=== PATIENT | male | born 1945 | race Hispanic/Latino ===

== ENCOUNTER 2018-05-12 03:19 | Inpatient (IN) | payer MEDICARE ==
[2018-05-12 03:38] VITALS: O2SAT 97
--- NOTE | 2018-05-12 03:46 | ED PDOC ---
Psych Transfer Clearance - Clearance Statement Clearance Statement: Reviewed vital signs, lab results and transfer papers. Patient clinically stable for psychiatric admission.
[2018-05-12] MEDS ORDERED: Magnesium Hydroxide Susp 30 ml UD PO PRN (04:06)
[2018-05-12] MEDS ORDERED: Bismuth Subsalicylate 262 mg/15 ml Sus (240 ml) PO PRN (04:06)
[2018-05-12] MEDS ORDERED: Alum-Mag Hydrox-Simethicone Susp (30 mL) PO PRN (04:06)
--- NOTE | 2018-05-12 04:58 | PCM.BM ---
<Ezequiel Cyr - Last Filed: 05/12/18 04:55> Treatment Plan Problems - Problems identified on initial assessmt Ineffective Impulse Control Date Initiated: 05/12/18 Time Initiated: 04:58 Assessment reference: HP NA Status: Active Treatment assets and liabiliti Patient Assests: cooperative, negotiates basic needs Patient Liabilities: relationship conflicts (conflict with ), medical problems (hard of hearing) - Milieu Protocol Maintain good personal hygiene: daily Encourage regular showers, daily Remind patient to perform daily oral care, daily Assist patient to perform ADL's Maintain personal safety: every shift Educate patient to report safety concerns to staff, every shift Monitor environment for contraband/sharps Medication safety: Monitor for expected outcome, potential side effects: every shift, Assess barriers to learning: every shift, Assess readiness for medication education: every shift <Clementine Jones - Last Filed: 05/12/18 11:40> - Diagnosis (1) PTSD (post-traumatic stress disorder) Status: Acute Interventions: Medication management, Individual and group therapy, Psychoeducation 05/12/18 11:40 <Wen Aguilera - Last Filed: 05/13/18 12:45> Family Contact Family contact: Patient agrees to contact, Family has been contacted by patient , Telephone contact initiated by staff Family contact name: Julia - spouse Family contacted how many times per week?: 2 Family contact comment: [phone] - Outside Agency [facility] involvment: Information-sharing Agency contact name: Dr. Mundo Woods MD Agency contact number: [phone] - Goals for Treatment Patient goals for treatment: Pt to be encouraged to attend activity and clinical groups 3-5x per week to identify at least 2 contributing factors to depression and suicide attempt. Psycho-education to be provided to patient/ family regarding benefits of medications and treatment adherence. Pt to be encouraged to participate in group milieu to develop effective coping skills to reduce depression and free of suicide ideation. Coordinate discharge resource needs by providing referral for psychiatric treatment follow up in the community. Discharge/Continuing Care - Education Needs Education Needs: Patient Medication, Patient Diagnosis/Disease Process, Patient Coping Skills, Patient Community resources, Patient Activities of Daily Living, Patient Uses of Medical Equipment, Patient Health Practices/Safety, Patient Personal Hygiene/Grooming - Discharge Discharge Criteria: Tolerates medication w/o severe side effects, Free of Suicidal thoughts, Free of agitation, Normal sleep pattern, Ability to care for self, Reduction of target symptoms Discharge to:: Home, With Family - Additional Comments 05/13/18 12:27 Pt seen and discussed in team meeting. Pt apologized for bx earlier. Pt presented with mood swings and labile. Pt was tearful when talking about his recent sister and the [facility]. Pt requesting to be discharged. Discharge process explained to pt. Pt informed that [facility] was contacted and pending evaluation. Pt verbalized understanding and was able to calm down. Pt reported medication compliance. Pt talked about his marital issues and conflictual relationship with his spouse. Pt denied active SI and HI. Pt denied active AVH. Pt denied any paranoia. Pt informed that he will be discharged once [facility] evaluates him and if he does not meet criteria for involuntary hospitalization. Pt also informed of process if he does meet criteria for involuntary hospitalizations. SW to continue to follow case. - Treatment Team Participation Discussed with Family/SO: No Was Patient/Family/SO present at Treatment Team Meeting: Yes
[2018-05-12] MEDS ORDERED: Albuterol-Ipratrop 3 mg / 0.5 (3 ml) UD INH PRN (05:27)
[2018-05-12 06:33] LABS: MEAN CELL VOLUME 84.4 fl (80.0-94.0); MEAN CORPUSCULAR HEMOGLOBIN 28.8 pg (27.0-31.0); MEAN CORPUSCULAR HGB CONC 34.2 g/dL (33.0-37.0); RBC 4.84 Mil/uL (4.40-5.90); RED CELL DISTRIBUTION WIDTH 13.8 % (11.5-14.5)
[2018-05-12 06:46] LABS: IRON 36 ug/dL (49-181)
[2018-05-12 06:49] LABS: ALB/GLOB RATIO 1.7 (1.0-2.1); ALBUMIN 3.6 g/dL (3.5-5.0); ALT/SGPT 23 U/L (21-72); AST/SGOT 17 U/L (17-59); BLOOD UREA NITROGEN 10 mg/dl (9-20); CALCIUM 8.5 mg/dL (8.4-10.2); GFR AFRICAN-AMERICAN > 60; GFR NON-AFRICAN AMERICAN > 60; HDL CHOLESTEROL 32 MG/DL (30-70)
[2018-05-12 06:57] LABS: % IRON SATURATION 12 % (20-55); TOTAL IRON BINDING CAPACITY 309 ug/dL (250-450)
[2018-05-12 07:00] LABS: LDL CHOLESTEROL 78 mg/dL (0-129)
[2018-05-12 07:04] LABS: T4 8.42 ug/dl (5.5-11.0)
[2018-05-12 07:21] LABS: FERRITIN 73.4 ng/Ml (17.9-464)
[2018-05-12] MEDS: Fluticasone-Salmeterol 250-50mcg Diskus IH SCH ×2 (08:47→22:01)
[2018-05-12] MEDS ORDERED: Patient's Own Med (Budesonide/Formoterol Fumarate [Symbicort 160-4.5 Mcg Inhaler] 1 AER) IH SCH (09:00)
--- NOTE | 2018-05-12 10:22 | PCM.PSYCH ---
Initial Psychiatric Evaluation - Initial Psychiatric Evaluation Type of Admission: Voluntary Legal Status: Capacity Chief Complaint (in patient's own words): "I threatened to kill myself." Patient's Reaction to Hospitalization: HPI: 73 yo male w/ h/o PTSD, was transferred after her made a threat to kill himself in an ER, in the context of being in the hospital with his ill mother. Patient now states that he made that threat due to anger and did not have any intention to harm himself. He reports that he feels intermittently depressed and hopeless, but denies acute ideation to harm himself. He denies AH/VH/ paranoia/delusions/SI/HI. Although patient minimizes psychiatric symptoms, he is intrusive, pressured, labile and irritable w/ automobile and property underwriter and staff. Patient submitted a 48 hr letter requesting to be discharged. Collateral history obtained from his , who states that the patient is emotionally unstable, labile and she does not feel he is psychiatrically stable or safe to be discharged to home. PPHx: H/o 4 previous psychiatric admissions. Denies h/o suicide attempts. 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 Current Medications: Active Medications Generic Name Dose Route Start Last Admin Trade Name Freq PRN Reason Stop Dose Admin Acetaminophen 650 mg 05/12/18 04:06 Tylenol 325mg Tab PO Q4 PRN Pain, moderate (4-7) Al Hydrox/Mg Hydrox/Simethicone 30 ml 05/12/18 04:06 Maalox Plus 30 Ml PO Q4 PRN Dyspepsia Albuterol/Ipratropium 3 ml 05/12/18 05:27 Duoneb 3 Mg/0.5 Mg (3 Ml) Ud INH RQ6 PRN Shortness of Breath Aspirin 81 mg 05/12/18 09:00 05/12/18 08:45 Ecotrin PO 81 mg DAILY MARK Administration Bismuth Subsalicylate 524 mg 05/12/18 04:06 Pepto-Bismol PO Q4 PRN Diarrhea Diltiazem HCl 60 mg 05/12/18 09:00 05/12/18 08:46 Cardizem PO 60 mg BID MARK Administration Docusate Sodium 100 mg 05/12/18 09:00 05/12/18 08:45 Colace PO 100 mg BID MARK Administration Hydroxyzine HCl 25 mg 05/12/18 09:00 05/12/18 08:46 Atarax PO 25 mg BID MARK Administration Lorazepam 0.5 mg 05/12/18 04:06 Ativan PO 05/26/18 04:07 HS PRN Insomnia Lorazepam 0.5 mg 05/12/18 04:06 Ativan PO 05/26/18 04:07 Q6 PRN Anixety/Agitation Magnesium Hydroxide 30 ml 05/12/18 04:06 Milk Of Magnesia PO HS PRN Constipation Fluticasone/Salmeterol 1 puff 05/12/18 09:00 05/12/18 08:47 Advair Diskus 250/50 IH 1 puff Q12 MARK Administration Sennosides 8.6 mg 05/12/18 09:00 05/12/18 08:46 Senokot Tab PO 8.6 mg BID MARK Administration Past Psychiatric History - Past Psychiatric History Previous Treatment History: Inpatient Pertinent Medical Hx (Current Medical&Sleep Prob, Allergies): Allergies Allergy/AdvReac Type Severity Reaction Status Date / Time shellfish derived AdvReac SWELLING Verified 05/12/18 03:32 Albuterol Sulfate [Proventil Hfa] 05/12/18 Aspirin [Adult Low Dose Aspirin EC] 81 mg PO DAILY 05/12/18 Budesonide/Formoterol Fumarate [Symbicort] 1 aer IH 05/12/18 Cetirizine HCl [Children's Wal-Zyr] 10 mg PO DAILY 05/12/18 Cholecalciferol (Vitamin D3) [Vitamin D3] 2,000 unit PO DAILY 05/12/18 Diltiazem HCl [Cardizem] 60 mg PO BID 05/12/18 Docusate Sodium [Bustillo' Stool Softener Laxative] 100 mg PO BID 05/12/18 Hydroxyzine HCl 25 mg PO BID 05/12/18 Ipratropium Satin [Ipratropium Satin 30 ml] 30 ml NS 05/12/18 Sennosides [Senna Laxative] 8.6 mg PO BID 05/12/18 clonazePAM [clonAZEPAM] 1 mg PO BID 05/12/18 Review of Systems - Psychiatric Psychiatric: Abnormal Sleep Pattern, Depression, Difficulty Concentrating, Irritability, Mood Swings, Suicidal Ideation Mental Status Examination - Personal Presentation Personal Presentation: Looks older than stated age - Affect Affect: Other (Labile) - Motor Activity Motor Activity: Psychomotor Agitation - Reliability in Providing Information Reliability in Providing Information: Poor, due to alteration in thoughts - Speech Speech: Coherent - Mood Mood: Depressed - Formal Thought Process Formal Thought Process: No Impairment - Hallucinations/Delusions Additional comments: No AH/VH/paranoia/delusions - Obsessions/Compulsions Obsessions: No Compulsions: No - Cognitive Functions Orientation: Person, Place, Situation, Time Sensorium: Alert Judgement: Imparied, as evidence by: Lack of insight into illness Memory: Recent intact, as evidence by: Ability to recall events of the day - Risk Risk: Diminished functioning - Strength & Assets Inventory Strength & Assets Inventory: Family support - Limitations Limitations: Decreased memory, recent DSM 5 DX - DSM 5 DSM 5 Diagnosis: PTSD, Mood Disorder NOS - Recommended/Plan of Treatment Treatment Recommendations and Plan of Treatment: PTSD, Mood Disorder NOS -Admit to psychiatry unit -Continue Klonopin; patient does not want to change his psychiatric medications at this time -Medicine consult -Pt submitted a 48 hr letter requesting to be discharged; will screen for involuntary psychiatric commitment -Disposition planning Discharge Plan and Discharge Criteria: Discharge when patient is psychiatrically stable - Smoking Cessation Smoking Cessation Initiated: No Reason for not providing: Not indicated
[2018-05-12 16:50] LABS: FOLATE 5.5 ng/mL
[2018-05-12 17:50] VITALS: TEMP 97
--- NOTE | 2018-05-12 18:26 | CP.PCM.CON ---
History of Present Illness - History of Present Illness History of Present Illness: 73 yo male with history of COPD, CAD, HTN, Prostate Cancer complicated with Lymphedema and PTSD admitted to [facility] because of suicidal ideation Review of Systems - Review of Systems All systems: reviewed and no additional remarkable complaints except (aside from those mentioned above, 12 point system review were negative by me) Past Patient History - Tetanus Immunizations Tetanus Immunization: Unknown - Past Social History Smoking Status: Never Smoked Chewing Tobacco Use: No Cigar Use: No Alcohol: None Drugs: Denies - CARDIAC Hx Atrial Fibrillation: Yes Hx Heart Attack: Yes Hx Hypertension: Yes Hx Peripheral Vascular Disease: Yes - PULMONARY Hx Chronic Obstructive Pulmonary Disease (COPD): Yes Hx Sleep Apnea: Yes - HEENT 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) - MUSCULOSKELETAL/RHEUMATOLOGICAL Hx Falls: Yes - GASTROINTESTINAL Hx Constipation: Yes - GENITOURINARY/GYNECOLOGICAL Hx Prostate Cancer: Yes - SURGICAL HISTORY Other/Comment: cardiac stents x3 - ANESTHESIA Hx Anesthesia: Yes Hx Anesthesia Reactions: No Hx Malignant Hyperthermia: No Has any member of the family had a problem w/ anesthesia?: No Meds Allergies/Adverse Reactions: Allergies Allergy/AdvReac Type Severity Reaction Status Date / Time shellfish derived AdvReac SWELLING Verified 05/12/18 03:32 - Medications Medications: Current Medications Acetaminophen (Tylenol 325mg Tab) 650 mg PO Q4 PRN PRN Reason: Pain, moderate (4-7) Last Admin: 05/12/18 16:33 Dose: 650 mg Al Hydrox/Mg Hydrox/Simethicone (Maalox Plus 30 Ml) 30 ml PO Q4 PRN PRN Reason: Dyspepsia Albuterol/Ipratropium (Duoneb 3 Mg/0.5 Mg (3 Ml) Ud) 3 ml INH RQ6 PRN PRN Reason: Shortness of Breath Aspirin (Ecotrin) 81 mg PO DAILY [facility] Last Admin: 05/12/18 08:45 Dose: 81 mg Bismuth Subsalicylate (Pepto-Bismol) 524 mg PO Q4 PRN PRN Reason: Diarrhea Clonazepam (Klonopin) 1 mg PO BID [facility] Last Admin: 05/12/18 16:27 Dose: 1 mg Diltiazem HCl (Cardizem) 60 mg PO BID [facility] Last Admin: 05/12/18 17:53 Dose: Not Given Docusate Sodium (Colace) 100 mg PO BID [facility] Last Admin: 05/12/18 16:27 Dose: 100 mg Hydroxyzine HCl (Atarax) 25 mg PO BID [facility] Last Admin: 05/12/18 16:27 Dose: 25 mg Lorazepam (Ativan) 0.5 mg PO HS PRN PRN Reason: Insomnia Stop: 05/26/18 04:07 Lorazepam (Ativan) 0.5 mg PO Q6 PRN PRN Reason: Anixety/Agitation Stop: 05/26/18 04:07 Magnesium Hydroxide (Milk Of Magnesia) 30 ml PO HS PRN PRN Reason: Constipation Fluticasone/Salmeterol (Advair Diskus 250/50) 1 puff IH Q12 [facility] Last Admin: 05/12/18 08:47 Dose: 1 puff Sennosides (Senokot Tab) 8.6 mg PO BID [facility] Last Admin: 05/12/18 16:27 Dose: 8.6 mg Physical Exam - Constitutional Appears: No Acute Distress - Head Exam Head Exam: ATRAUMATIC - Eye Exam Eye Exam: absent: Scleral icterus - ENT Exam ENT Exam: Mucous Membranes Moist - Neck Exam Neck exam: Negative for: Meningismus - Respiratory Exam Respiratory Exam: absent: Rales, Rhonchi, Wheezes, Respiratory Distress - Cardiovascular Exam Cardiovascular Exam: REGULAR RHYTHM, +S1, +S2 - GI/Abdominal Exam GI & Abdominal Exam: Soft. absent: Tenderness - Rectal Exam Rectal Exam: Deferred - Back Exam Back exam: NORMAL INSPECTION - Neurological Exam Neurological exam: Alert, Oriented x3 - Psychiatric Exam Psychiatric exam: Normal Affect - Skin Skin Exam: Dry, Intact Results - Vital Signs Recent Vital Signs: Last Vital Signs Temp 97 F L 05/12/18 17:49 Pulse 69 05/12/18 17:53 Resp 20 05/12/18 17:49 BP 102/52 L 05/12/18 17:53 Pulse Ox 97 05/12/18 05:34 - Labs Result Diagrams: 05/12/18 06:10 05/12/18 06:10 Labs: Laboratory Results - last 24 hr 05/12/18 05/12/18 05/12/18 06:10 06:10 06:10 WBC 8.0 RBC 4.84 Hgb 14.0 Hct 40.9 MCV 84.4 MCH 28.8 MCHC 34.2 RDW 13.8 Plt Count 258 Sodium 139 Potassium 3.6 Chloride 103 Carbon Dioxide 27 Anion Gap 13 BUN 10 Creatinine 0.9 Est GFR ( Amer) > 60 Est GFR (Non-Af Amer) > 60 Random Glucose 175 H Hemoglobin A1c Calcium 8.5 Iron 36 L TIBC 309 % Saturation 12 L Ferritin 73.4 Total Bilirubin 0.4 AST 17 ALT 23 Alkaline Phosphatase 60 Total Protein 5.8 L Albumin 3.6 Globulin 2.2 Albumin/Globulin Ratio 1.7 Triglycerides 151 H Cholesterol 138 LDL Cholesterol Direct 78 HDL Cholesterol 32 Vitamin B12 234 L Folate 5.5 Free T4 Thyroxine (T4) 8.42 TSH 3rd Generation 1.70 Alcohol, Quantitative RPR 05/12/18 05/12/18 05/12/18 06:10 06:10 06:10 WBC RBC Hgb Hct MCV MCH MCHC RDW Plt Count Sodium Potassium Chloride Carbon Dioxide Anion Gap BUN Creatinine Est GFR ( Amer) Est GFR (Non-Af Amer) Random Glucose Hemoglobin A1c 5.5 Calcium Iron TIBC % Saturation Ferritin Total Bilirubin AST ALT Alkaline Phosphatase Total Protein Albumin Globulin Albumin/Globulin Ratio Triglycerides Cholesterol LDL Cholesterol Direct HDL Cholesterol Vitamin B12 Folate Free T4 1.23 Thyroxine (T4) TSH 3rd Generation Alcohol, Quantitative RPR Nonreactive 05/12/18 17:38 WBC RBC Hgb Hct MCV MCH MCHC RDW Plt Count Sodium Potassium Chloride Carbon Dioxide Anion Gap BUN Creatinine Est GFR ( Amer) Est GFR (Non-Af Amer) Random Glucose Hemoglobin A1c Calcium Iron TIBC % Saturation Ferritin Total Bilirubin AST ALT Alkaline Phosphatase Total Protein Albumin Globulin Albumin/Globulin Ratio Triglycerides Cholesterol LDL Cholesterol Direct HDL Cholesterol Vitamin B12 Folate Free T4 Thyroxine (T4) TSH 3rd Generation Alcohol, Quantitative < 10 RPR Assessment & Plan (1) Suicidal ideation Status: Acute Comment: psyche is managing (2) CAD (coronary artery disease) Status: Chronic Comment: asymptomatic. continue ASA (3) COPD (chronic obstructive pulmonary disease) Status: Chronic Comment: asymptomatic. Albuterol inhaler 2 puffs q 4hrs prn. Budesonide/ Formoterol 2 puffs BID (4) HTN (hypertension) Status: Chronic Comment: BP stable. on Diltiazem 60mg PO BID
[2018-05-13 06:04] VITALS: BP 123/73; PULSE 73; RESP 18
[2018-05-13] MEDS: Fluticasone-Salmeterol 250-50mcg Diskus IH SCH (08:25)
--- NOTE | 2018-05-13 09:45 | PCM.PYCHPN ---
Psychiatric Progress Note - Psychiatric Progress Note Patient seen today, length of contact: Patient evaluated, case discussed with team, chart reviewed Patient Chief Complaint: "I threatened to kill myself." Problems Identified/Issues Discussed: Patient was irritable w/ staff this morning, demanding to be discharged. He denies acute depression/anxiety/AH/VH/SI/HI. Pending screening by [facility]. Forestry And Wildlife Manager spoke w/ patient's fleece tier, Dr. Myrick, , who called to provide collateral history that the information from the may not be accurate and that he does not believe the patient is an acute danger to self or others. Medication Change: No Medical Record Reviewed: Yes Consults ordered or reviewed: Medicine Mental Status Examination - Cognitive Function Orientation: Person, Place, Situation, Time Memory: Intact Association: WNL Fund of Knowledge: [facility] Decription of patient's judgement and insights: Fair I/J - Mood Mood: Neutral - Affect Affect: Other (Labile) - Speech Speech: Appropriate - Formal Thought Process Formal Thought Process: No Impairment Psychotic Thoughts and Behaviors: Denies AH/VH/paranoia/delusions - Suicidal Ideation Suicidal Ideation: No - Homicidal Ideation Homicidal Ideation: No Goal/Treatment Plan - Goal/Treatment Plan Progress Toward Problem(s) and Goals/Treatment Plan: PTSD, Mood Disorder NOS; pending screening by [facility] -Continue Klonopin; patient does not want to change his psychiatric medications at this time -Medicine consult -Pt submitted a 48 hr letter requesting to be discharged; pending screening by [facility]
--- NOTE | 2018-05-13 10:53 | RAD ---
Date of service: 05/13/2018 PROCEDURE: Left Knee Radiographs. HISTORY: Pain. COMPARISON: None. FINDINGS: BONES: No acute fracture or destructive bony lesion identified. JOINTS: No subluxation or dislocation appreciated. Joint space narrowing and articular cortical sclerosis appreciated at the patellofemoral as well as medial and lateral femorotibial compartments. Minimal osteophyte development is seen at the patellofemoral compartment and is moderate at the lateral femorotibial compartment. JOINT EFFUSION: Trace suprapatellar bursa effusion is suggested. OTHER FINDINGS: None. IMPRESSION: No acute fracture or dislocation identified. Moderate osteoarthritis. Trace suprapatellar bursa effusion.
[2018-05-13 10:57] LABS: SQUAMOUS EPITHIAL < 1 /hpf (0-5); URINE BILIRUBIN NEGATIVE (NEGATIVE); URINE BLOOD NEGATIVE (NEGATIVE); URINE CLARITY SLIGHTY-CLOUDY (Clear); URINE COLOR YELLOW (YELLOW); URINE GLUCOSE (UA) NEG (Normal); URINE HYALINE CAST 0-2 /hpf (0-2); URINE LEUKOCYTE ESTERASE NEG Leu/uL (Negative); URINE PROTEIN NEGATIVE (NEGATIVE); URINE UROBILINOGEN 0.2-1.0 mg/dL (0.2-1.0)
[2018-05-13 11:13] LABS: BENZODIAZEPINES, UR NEGATIVE (NEGATIVE)
[2018-05-13 11:17] LABS: BARBITURATES, UR NEGATIVE (NEGATIVE); OPIATES, UR NEGATIVE (NEGATIVE); PHENCYCLIDINE, UR NEGATIVE (NEGATIVE)
--- NOTE | 2018-05-13 12:16 | PCM.PYCHDC ---
Mental Status Examination - Mental Status Examination Orientation: Person, Place, Situation, Time Memory: Intact Mood: Neutral Affect: Broad Attention: WNL Concentration: WNL Association: WNL Fund of Knowledge: WNL Formal Thought Process: No Impairment Description of patient's judgement and insight: Fair I/J Psychotic Thoughts and Behaviors: Denies AH/VH/paranoia/delusions Suicidal Ideation: No Current Homicidal Ideation?: No Discharge Summary - Discharge Note Reason for Hospitalization: HPI: 73 yo male w/ h/o PTSD, was transferred after her made a threat to kill himself in an ER, in the context of being in the hospital with his ill mother. Patient now states that he made that threat due to anger and did not have any intention to harm himself. He reports that he feels intermittently depressed and hopeless, but denies acute ideation to harm himself. He denies AH/VH/ paranoia/delusions/SI/HI. Although patient minimizes psychiatric symptoms, he is intrusive, pressured, labile and irritable w/ financial underwriter and staff. Patient submitted a 48 hr letter requesting to be discharged. Collateral history obtained from his , who states that the patient is emotionally unstable, labile and she does not feel he is psychiatrically stable or safe to be discharged to home. PPHx: H/o 4 previous psychiatric admissions. Denies h/o suicide attempts. 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 Lab Results 05/12/18 05/12/18 05/12/18 06:10 06:10 06:10 Hemoglobin A1c 5.5 Folate 5.5 Urine Color Urine Clarity Urine pH Ur Specific [place] Urine Protein Urine Glucose (UA) Urine Ketones Urine Blood Urine Nitrate Urine Bilirubin Urine Urobilinogen Ur Leukocyte Esterase Urine RBC (Auto) Urine Microscopic WBC Ur Squamous Epith Cells Hyaline Casts Urine Opiates Screen Urine Methadone Screen Ur Barbiturates Screen Ur Phencyclidine Scrn Ur Amphetamines Screen U Benzodiazepines Scrn U Oth Cocaine Metabols U Cannabinoids Screen Alcohol, Quantitative RPR Nonreactive 05/12/18 05/13/18 05/13/18 17:38 10:47 10:47 Hemoglobin A1c Folate Urine Color Yellow Urine Clarity Slighty-cloudy Urine pH 5.0 Ur Specific [place] 1.018 Urine Protein Negative Urine Glucose (UA) Neg Urine Ketones Trace Urine Blood Negative Urine Nitrate Negative Urine Bilirubin Negative Urine Urobilinogen 0.2-1.0 Ur Leukocyte Esterase Neg Urine RBC (Auto) 1 Urine Microscopic WBC 2 Ur Squamous Epith Cells < 1 Hyaline Casts 0-2 Urine Opiates Screen Negative Urine Methadone Screen Negative Ur Barbiturates Screen Negative Ur Phencyclidine Scrn Negative Ur Amphetamines Screen Negative U Benzodiazepines Scrn Negative U Oth Cocaine Metabols Negative U Cannabinoids Screen Negative Alcohol, Quantitative < 10 RPR Consultations:: List each consultation separately and include: 1. Reason for request. 2. Findings. 3. Follow-up Consultations: Medicine Summary of Hospital Course include:: 1. Description of specific treatment plan utilized for patients during their course of treatmen. 2. Summarize the time- course for resolution of acute symptoms and/or regressed behaviors. 3. Describe issues identified and worked on during hospitalization. 4. Describe medication utilized. 5. Describe medical problems identified and treated. 6. Reassessment of suicide risk Summary of Hospital Course: Patient was admitted to the psychiatry unit. Individual and group therapy were provided. Patient submitted a 48 hour letter requesting to be discharged, was screened and not accepted for involuntary psychiatric admission. Patient refused any new psychiatric medications. He will be discharged today w/ continued outpatient follow-up with his primary psychiatrist. He denies acute depression/anxiety/AH/VH/paranoia/delusions. - Diagnosis (1) PTSD (post-traumatic stress disorder) Current Visit: Yes Status: Chronic - Final Diagnosis (DSM 5) Condition upon Discharge: STABLE DSM 5: PTSD; Mood Disorder Disposition: HOME/ ROUTINE Follow-up Treatment Plan: PTSD, Mood Disorder NOS -Continue Klonopin -Discharge w/ continued outpatient psychiatric follow-up with his primary psychiatrist - Smoking Cessation Smoking Cessation Medication prescribed: No Reason for not providing: Not indicated - Antipsychotic Medications Pt discharged on 2 or more routine antipsychotic medications: No
== END 2018-05-13 15:24 | disposition home or self-care (01) | DRG 885 ==
LOC: H.ER 03:19 → H.STEP 03:47
PROVIDERS: ADMIT Psychiatry & Neurology Psychiatry; ATTEND Psychiatry & Neurology Psychiatry
PROC: GZHZZZZ Group Psychotherapy (ICD-10-PCS; principal; 2018-05-12)
PROC: GZ58ZZZ Individual Psychotherapy, Cognitive-Behavioral (ICD-10-PCS; 2018-05-12)
DX: F39 Unspecified mood [affective] disorder (principal); F43.10 Post-traumatic stress disorder, unspecified; G47.30 Sleep apnea, unspecified; I10 Essential (primary) hypertension; I25.10 Atherosclerotic heart disease of native coronary artery without angina pectoris; I48.91 Unspecified atrial fibrillation; J44.9 Chronic obstructive pulmonary disease, unspecified; I73.9 Peripheral vascular disease, unspecified; H91.8X3 Other specified hearing loss, bilateral; I89.0 Lymphedema, not elsewhere classified; M19.90 Unspecified osteoarthritis, unspecified site; I25.2 Old myocardial infarction; Z95.5 Presence of coronary angioplasty implant and graft; Z85.46 Personal history of malignant neoplasm of prostate; Z91.013 Allergy to seafood